=== PATIENT | female | born 1985 ===

== ENCOUNTER 2025-04-04 14:25 | Outpatient (AMB) | payer OTHER, SELFPAY ==
--- NOTE | 2025-04-04 14:32 | A.OFFVIS_ITS ---
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 Over the years, she had tried multiple meds including Amerge, Imitrex, Axert, Tylneol, Execedrin, Ibuprufen, B12, Magnesium, Fiorecet, Zomig, Frova, Maxalt, Topamax, and Midrin without relief. She has been using Aimovig for a few years with success. Before Aimovig, she had 2-3 headaches a week, and with it, it was about 1-2/month. There was no aura or warning. Pain usually was on the right side of head, or the left side, throbbing type, moderate to severe, worse with light and noise, with nausea, and could last all day to the next day. Relpax may abort it in less than an hour. She was doing okay. Migraines were controlled with Aimovig, happening about 2- 3x/month. She was using generic eletriptan as needed which helped some, but had side effects of GI upset and nausea that could last few hours. She was prescribed brand name Relpax in the past which provided relief within an hour without any side effects. She was asking if brand name medication could be prescribed again. [facility] Medical History (Updated 04/04/25 @ 14:34 by Ewa Clark CNP) Migraine without aura Review of Systems Const Denies chills, Denies daytime sleepiness, Denies difficulty sleeping, Denies fatigue, Denies fever(s), Denies frequent falls, Reports headache(s), Denies increased appetite, Denies poor appetite, Denies snoring, Denies weakness, Denies weight gain and Denies weight loss Eyes Denies loss of vision ENT Denies vertigo, Denies dizziness and Reports headache(s) Card Denies chest pain at rest, Denies chest pain with activity, Denies syncope, Denies leg edema and Denies palpitations Resp Denies snoring GI Denies constipation, Denies heartburn, Denies diarrhea and Denies nausea Denies urinary frequency, Denies urinary incontinence and Denies urinary urgency Musc Denies abnormal gait, Denies numbness and Denies tingling Skin/Breast Denies dry skin and Denies rash Neuro Denies abnormal gait, Denies vertigo, Denies dizziness, Denies syncope, Denies frequent falls, Reports headache(s), Denies lack of coordination, Denies loss of vision, Denies memory loss, Denies numbness, Denies restless legs, Denies seizure-like activity, Denies tingling, Denies paresthesias, Denies tremor(s) and Denies weakness Psych Denies anxiety, Denies depression, Denies auditory hallucinations, Denies memory loss, Denies visual hallucinations and Denies suicidal ideation Endo Denies fatigue and Denies palpitations Physical Exam Const Other: General Appearance:? normal, in no acute distress. Skin:? no rashes, no significant birthmarks. Heart:? S1, S2 normal, no murmurs. Lungs:? clear anteriorly and posteriorly. Extremities:? no edema. Psych:? alert, oriented, cognitive function intact, cooperative with exam. Neuro Other: Mental Status:?Normal attention, orientation, memory and affect.? Cranial Nerves:?Pupils are equal, round and reactive to light. External occular muscles are intact. Visual cristina are full. Face is symmetrical. Facial sensations are normal. Tongue is midline. Palate elevates symmetrically. Shoulder shrugging is normal. Hearing to bedside conversation is normal. Sensory Exam:?....? Coordination:?No ataxia,?no titubation.? Gait Exam: Within normal limits. Cerebellar Signs:?Vqfsny-ch-ouut is okay. Extrapyramidal System:?No tremor, rigidity with normal facial expressions.? Pronator Drift:?Not present.? Involuntary Movements:?No tremors seen.? Speech:?Normal.? Assessment & Plan Assessment & Plan (1) Migraine without aura: Code(s): G43.009 - Migraine without aura, not intractable, without status migrainosus Category: Medical Qualifiers: Status migrainosus presence: without status migrainosus Intractability: not intractable Qualified Code(s): G43.009 - Migraine without aura, not intractable, without status migrainosus Plan: Continue Aimovig Solution Auto-injector 140mg/mL subcutaneous monthly. Continue ondansetron 4mg 1 tablet as needed for nausea/vomiting #10 for 30 days. She had side effects of GI upset and nausea with generic eletriptan. She did not have side effects with brand name Relpax, and script for brand name was sent instead. Continue Relpax 40mg 1 tablet as needed for migraine. Follow up in 6 months or sooner as needed. Plan Meds tried: Amerge, Immitrex, Axert, Tylneol, Execedrin, Ibuprufen, B12, Magnesium, Fiorecet, Zomig, Frova, Maxalt, Topamax, Midrin, Aimovig, Relpax. Medications: New Relpax (eletriptan) 40 mg PO DAILY 10 tabs 5RF 30 days NS Coding Level of Care Code Est Pt Level 4 (46441) Diagnoses Migraine without aura and without status migrainosus, not intractable G43.009 Status migrainosus presence: without status migrainosus Intractability: not intractable
--- OUTSIDE RECORDS SUMMARY | 2025-04-04 17:46 | XMS_ITS ---
Author Name [facility] Organization Unknown Care Team Organization Name Specialty Phone Email Start Date End Da te [facility] 03/12/2022 4
--- OUTSIDE RECORDS SUMMARY | 2025-04-04 17:46 | XMS_ITS | Clinical Summary ---
Author Organization [facility] [address] [place] [address] [place] [phone] Phone Care Team Providers Care Dredge Pumper Name Role Phone Susy Dumont MD Primary Care Provider [phone] Allergies No known active allergies Medications eletriptan (RELPAX) 40 mg tablet Take 1 Tablet by mouth as needed (9). may repeat in 2 hours if necessary 09/15/19 24 Active medroxyPROGESTERo ne 150 mg/mL injection 03/30/20 24 Active Aimovig Autoinjector 140 mg/mL injection INJECT 1 SUBCUTANEOUS A MONTH 90 DAYS Active medroxyPROGESTERo ne 150 mg/mL injectionIndicati ons:Surveillance for Depo-Provera contraception Inject 1 mL (150 mg total) into the shoulder, thigh, or buttocks once every twelve (12) weeks. 1 mL 3 06/07/19 25 Active Hospital, Clinic, or Other Facility Administered Medication Ordered Dose Route Frequency Start Date End Date Status medroxyPROGESTERone (DEPO-PROVERA) injection 150 mgIndications:Encounter for management and injection of depo-Provera 150 mg IM Once 03/22/2025 03/22/2025 Ended Active Problems Problem Noted Date Diagnosed Date Hyperlipidemia 05/10/2015 Migraines 04/24/2015 Encounters Date Type Department Care Team Description 03/22/2025 1:00 PM EST Clinical Support Obstetrics and Gynecology [address] [phone] Encounter for management and injection of depo-Provera (Primary Dx) from Last 3 Months Immunizations Immunization Administration Dates Next Due Pfizer SARS-CoV-2 COVID-19, mRNA, LNP-S, preservative free 04/11/2021 Tdap Tetanus diptheria acell ular pertussis (Boostrix; Adacel) 7yo and older 08/26/2022 Surgical History Surgery Date Site/Laterality Comments CHOLECYSTECTOMY 12/12/2015 PROCEDURE: IN CHOLECYSTECTOMY Medical History Medical History Date Comments Migraines 04/24/2015 DX:Migraines Hyperlipidemia 05/10/2015 DX:Hyperlipidemi a; COMMENT: resolved H/O vitamin D deficiency DX:H/O vitamin D deficiency; COMMENT: resolved Family History Medical History Relation Name Comments Hypertension Father kidney disease Multiple myeloma Father Asthma Mother Breast cancer Neg Hx Colon cancer Neg Hx Ovarian cancer Neg Hx Relation Name Status Comments Father Alive Mother Alive Social History Tobacco Use Types Packs/Day Years Used Date Smoking Tobacco: Never Smokeless Tobacco: Never Tobacco Cessation:Counseling Given: Not Answered Alcohol Use Standard Drinks/Week Comments Yes 0 (1 standard drink = 0.6 oz pur e alcohol) Housing Instability Answer Date Recorde d Are you worried that in the next 2 months you may not have stable housing? No 06/25/2024 Food Access & Nutrition Answer Date Rec orded Do you have access to a vari ety of food including fruits and vegetables? Yes 06/25/2024 Access to Healthcare Answer Date Record ed Within the last 3 months, ho w many times did you visit the emergency department for your medical care? 0 06/25/2024 Health Literacy Answer Date Recorded How often do you need to hav e someone help you when you read instructions, pamphlets, or other written material from your doctor or pharmacy? Never 06/25/2024 Caregiver: How often do you need to have someone help you when you read instructions, pamphlets, or other written material from your doctor or pharmacy? Not on file 06/25/2024 Financial Risk Answer Date Recorded How hard is it for you to pa y for the very basics like food, housing, medical care, and air conditioning / heating? Not very hard 06/25/2024 Transportation Answer Date Recorded Has the lack of transportati on kept you from meetings, work, or from getting things needed for daily living? No Has the lack of transportati on kept you from medical appointments or from getting medications? No 06/25/2024 Social Isolation Answer Date Recorded How often do you feel lonely or isolated from th ose around you? Never 06/25/2024 Food Risk Answer Date Recorded Within the past 12 months we worried whether our food would run out before we got money to buy more. Never true 06/25/2024 Within the past 12 months th e food we bought just didn't last and we didn't have money to get more. Never true 06/25/2024 Dependent Care Answer Date Recorded Do you need help finding or paying for care for your loved ones. For example, children's minister or elderly care for an older adult? No 06/25/2024 Education Answer Date Recorded Do you think completing more education or training, like finishing a GED, going to college, or learning a trade, would be helpful for you? N/A 06/25/2024 Employment and Income Answer Date Recor ded During the last four weeks, have you been actively looking for work? No 06/25/2024 Living Situation Answer Date Recorded What is your living situation? Unrecognized valu e 06/25/2024 Comments No Sex and Gender Information Value Date Recorded Sex Assigned at Not on file Legal Sex Female 4:33 AM EST Gender Identity Not on file Sexual Orientation Not on file Obstetrics History Para Term AB IAB SAB Ectopic Multiple Livin g Live Births 0 0 0 0 0 0 0 0 Last Filed Vital Signs Vital Sign Reading Time Taken Comments Blood Pressure 112/78 03/22/2025 1:20 PM EST Pulse 78 03/22/2025 1:20 PM EST Temperature - - Respiratory Rate 14 03/22/2025 1:20 PM EST Oxygen Saturation - - Inhaled Oxygen Concentration - - Weight 78.7 kg (173 lb 6.4 oz) 03/22/2025 1:20 P M EST Height 156 cm (5' 1.42 ) 03/22/2025 1:20 PM EST Body Mass Index 32.32 03/22/2025 1:20 PM EST Plan of Treatment Upcoming Encounters Date Type Department Care Team (Late st Contact Info) Description 06/14/2025 1:00 PM EST Clinical Support Obstetrics and Gynecology [address] [phone] Health Maintenance Due Date Last Done Comments Hepatitis B Vaccines (1 of 3 - 19+ 3-dose series) 2002 HPV Vaccines (1 - 3-dose SCDM series) 2010 COVID-19 Vaccine (3 - season) 2025 04/11/2021, 08/11/2020 Influenza Vaccine (#1) 2025 , 01/22/2022, 01/11/2021, Additional history exists Social Influencers of Health Screening 06/25/2025 06/25/2024 Breast Cancer Screening 11/30/2026 12/01/19 25, 11/12/2024, 03/19/2023 Cholesterol Screening (Lipid Panel) 09/15/2028 09/16/2023, 09/16/2023 Cervical Cancer Screening: HPV 06/07/2029 06/07/2024 DTaP,Tdap,and Td Vaccines (2 - Td or Tdap) 08/26/2032 08/26/2022 RSV Immunization Adult Patients (1 - 1-dose 75+ series) 2058 HIV Screening Completed 07/24/2018 Hepatitis C Screening Completed 07/24/2018 Depression Screening Completed 03/16/2025, 09/15/19 24 HIB Vaccines Aged Out No longer eligi ble based on patient's age to complete this topic Hepatitis A Vaccines Aged Out No long er eligible based on patient's age to complete this topic IPV Vaccines Aged Out No longer eligi ble based on patient's age to complete this topic MMR Vaccines Aged Out No longer eligi ble based on patient's age to complete this topic Meningococcal ACWY Vaccine Aged Out N o longer eligible based on patient's age to complete this topic Meningococcal B Vaccine Aged Out No l onger eligible based on patient's age to complete this topic Pneumococcal Vaccine: Pediatrics (0 to 5 Years) and At-Risk Patients (6 to 49 Years) Aged Out No longer eligible based on patient's age to complete this topic RSV Immunization Patients Under 20 months Aged Out No longer eligible based on patient's age to complete this topic Varicella Vaccines Aged Out No longer eligible based on patient's age to complete this topic Procedures Procedure Name Priority Date/Time Associated Diagnosis Comments MG MAMMO DIGITAL DIAGNOSTIC W NEFTALI LEFT Routine 11/30/2024 3:11 PM EDT Abnormal mammogram HPV WITH REFLEX GENOTYPE Routine 06/07/2024 9:20 AM EST Women's annual routine gynecological examination Surveillance for Depo-Provera contraception LIPID PANEL Routine 09/16/2023 DEPRESSION SCREENING Routine 09/15/2023 HEPATITIS C SCREENING Routine 07/24/2018 HIV SCREENING Routine 07/24/2018 from Last 3 Months or Most Recently Relevant to Health Maintenance Results * (ABNORMAL) MG Mammo Digital Diagnostic w Nefatli Left (11/30/2024 3:11 PM EDT) Anatomical Region Laterality Modality Breast Left Mammography 11/30/2024 3:13 PM EDT Addenda Addendum by Qiana Smith MD on 12/15/2024 9:06 AM EDT Addendum: There is voice recognition error in the first line of the IMPRESSION. The first line of the body the report should read Indeterminate cystic nodule 2:00 LEFT breast. -------- ADDENDUM -------- Dictated By: Qiana Smith Dictated Date: 12/15/2024 09:03 ET Assigned Physician: Qiana Smith Reviewed and Electronically Signed By: Qiana Smith Signed Date: 12/15/2024 09:06 ET Workstation ID: [id number] Transcribed By: Self Edit Transcribed Date: 12/15/2024 09:03 ET Impressions 11/30/2024 3:32 PM EDT Indeterminate cystic nodule 2 o'clock right breast. Ultrasound guided core biopsy is recommended. Findings and recommendations were discussed with the patient in person. BI-RADS CATEGORY: 4A - LOW SUSPICION FOR MALIGNANCY RECOMMENDATION: Core biopsy of left breast recommended. Core biopsy of left breast recommended. Core biopsy of left breast recommended. Core biopsy of left breast recommended. Mammo Location: [facility], [address] [place] [address], [id number], . -------- FINAL REPORT -------- Dictated By: Qiana Smith Dictated Date: 11/30/2024 15:13 ET Assigned Physician: Qiana Smith Reviewed and Electronically Signed By: Qiana Smith Signed Date: 11/30/2024 15:32 ET Workstation ID: [id number] Transcribed By: Self Edit Transcribed Date: 11/30/2024 15:17 ET Narrative 11/30/2024 3:32 PM EDT CLINICAL: 39 years old, Female, palpable indeterminate upper outer posterior depth focal asymmetry associated with calcifications. COMPARISON: Mammograms 11/12/2024 and 03/19/2023. FINDINGS: MAMMOGRAPHY TECHNIQUE: Mediolateral, spot compression MLO , and spot compression CC views of the left breast were obtained digitally with 3-D mammogram (digital breast tomosynthesis). Computer-aided detection was utilized in evaluation of this exam (CAD). Rounded focal asymmetry in the posterior upper outer left breast is a persistent finding. BREAST DENSITY: C - The breasts are heterogeneously dense which may obscure small masses. ULTRASOUND TECHNIQUE: Ultrasound evaluation of the upper outer left breast was performed. There is a 0.6 x 0.5 x 0.6 cm cystic nodule at the 2 o'clock position 6 cm from the nipple. However, internal echoes are unable to be cleared. Is felt to correspond to the mammographic finding. Susy Dumont MD IMG BI PROCEDURES Edited Result - Final * HPV with reflex genotype (06/07/2024 9:20 AM EST) Pathologist [facility] HPV Negative Negative LAB MICROBIOLOGY METHOD 06/08/2024 1:34 PM EST [facility] Brushing/Spatula Cervix uteri structure / Unknown 06/07/2024 9:20 AM EST 06/08/2024 6:43 AM EST Faina Chappell CNM LAB MOLECULAR DIAGNOSTICS ORDER MAGGIE Final Result [facility] [address] [place] [address], [place] [phone] * (ABNORMAL) Lipid panel (09/16/2023) Pathologist [facility] LDL/HDL Ratio 5(A) 0 - 4 Triglycerides 135 0 - 150 mg/dL Cholesterol 195 0 - 200 mg/dL HDL 43 >=40 mg/dL LDL Cholesterol 125(A) 0 - 100 mg/dL Blood Venous blood specimen / Unknown Result [facility] Provider LAB BLOOD ORDERABLES Denise l Result * Depression Screening (09/15/2023) Pathologist [facility] Depression Screening abstracted Result [facility] Provider HEALTH MAINTENANCE Final Result * HIV Screening (07/24/2018) [facility] HIV Screening abstracted Result [facility] Provider HEALTH MAINTENANCE Final Result * Hepatitis C Screening (07/24/2018) [facility] Hepatitis C Screening abstarcted Result [facility] Provider HEALTH MAINTENANCE Final Result from Last 3 Months or Most Recently Relevant to Health Maintenance Insurance [facility] Care Teams Dredge Pumper Relationship Specialty Start Date End Date Susy Dumont MD [address] [place] [phone] PCP - General 06/20/23
== END 2025-04-04 14:42 | disposition home or self-care (01) ==
LOC: HO.HSM 14:26
PROVIDERS: PCP Internal Medicine; Visit Provider Registered Nurse
DX: G43.009 Migraine without aura, not intractable, without status migrainosus (principal)
CPT/HCPCS: 99214